=== PATIENT | female | born 1950 | race Caucasian/White ===

== ENCOUNTER → 2020-10-15 | Outpatient (CLI) | payer MEDICARE ==
--- NOTE | 2020-10-15 16:20 | BD ---
EXAMINATION TYPE: Axial Bone Density DATE OF EXAM: 10/15/2020 COMPARISON: NONE CLINICAL HISTORY: Postmenopausal female Height: 66.2 IN Weight: 196 LBS FRAX RISK QUESTIONS: RISK FACTORS HISTORY OF: Active: YES Diet low in dairy products/other sources of calcium: YES Postmenopausal woman: AGE 50 Take estrogen and/or progesterone medications: NOT NOW How long: TOOK CONTROL FOR 15 YEARS MEDICATIONS: Osteoporosis Medications: NOT NOW Which medication: Actonel How Long: TOOK FOR 2 YEARS Additional Medications: METFORMIN, BLOOD PRESSURE MEDS, DIABETES MEDS, CHOLESTEROL MEDS EXAM MEASUREMENTS: Bone mineral densitometry was performed using the [employer] System. Bone mineral density as measured about the Lumbar spine is: ----- L1-L4(G/cm2): 1.126 T Score Values are as follows: ----- L2: -1.5 ----- L3: -0.2 ----- L4: 0.4 ----- L1-L4: -0.5 Bone mineral density BASELINE Bone mineral density about the R hip (g/cm2): 0.744 Bone mineral density about the L hip (g/cm2): 0.669 T Score values are as follows: -----R Neck: -2.1 -----L Neck: -2.7 -----R Total: -1.1 -----L Total: -1.7 Bone mineral density BASELINE IMPRESSION: Osteoporosis (T Score less than -2.5) femoral neck level within the left hip. There is increased fracture risk and therapy is usually indicated based on age. Re-Screen 1-2 years. NOTE: T-SCORE=SD OF THE YOUNG ADULT MEAN.
--- NOTE | 2020-10-17 14:53 | MM ---
Reason for exam: screening (asymptomatic). Last mammogram was performed 1 year and 5 months ago. History: Patient is postmenopausal. Took hormonal contraceptives for 20 years. Physical Findings: A clinical breast exam by your physician is recommended on an annual basis and results should be correlated with mammographic findings. MG 3D Screening Mammo W/Cad Bilateral CC and MLO view(s) were taken. Prior study comparison: May 26, 2019, mammogram. February 08, 2018, mammogram. There are scattered fibroglandular densities. No significant changes when compared with prior studies. ASSESSMENT: Benign, BI-RAD 2 RECOMMENDATION: Routine screening mammogram of both breasts in 1 year.
== END | disposition home or self-care (01) ==
LOC: RADMAMWWP 07:15
PROVIDERS: ATTEND Family Medicine
DX: Z12.31 Encounter for screening mammogram for malignant neoplasm of breast (principal); Z78.0 Asymptomatic menopausal state; M81.0 Age-related osteoporosis without current pathological fracture
CPT/HCPCS: 77063; 77067; 77080

== ENCOUNTER → 2022-10-16 | Outpatient (CLI) | payer MEDICARE ==
--- NOTE | 2022-10-16 12:07 | BD ---
EXAMINATION TYPE: Axial Bone Density DATE OF EXAM: 10/16/2022 CLINICAL HISTORY: 72 year old Female. ICD-10 CODE: Z78.0 MENOPAUSAL STATE Height: 67 Weight: 201.7 FRAX RISK QUESTIONS: Alcohol (3 or more units per day): no Family History (Parent hip fracture): no Glucocorticoids (More than 3mos): no (Ex: prednisone, prednisolone, methylprednisolone, dexamethasone, and hydrocortisone). History of Fracture in Adulthood: yes Secondary Osteoporosis: 1. Type 1 Diabetes: no 2. Hyperthyroidism: no 3. Menopause before 45: no 4. Malnutrition: no 5. Chronic liver disease: no Rheumatoid Arthritis: no Current Tobacco Use: no RISK FACTORS HISTORY OF: Surgery to Spine/Hip(right/left)/Wrist (right/left): no Family History of Osteoporosis: no Active: no Diet low in dairy products/other sources of calcium: yes Postmenopausal woman: yes Lost more than 2 inches in height since high school: no MEDICATIONS: Osteoporosis Medications: generic Actonel How Lon 1/2 years Additional Medications: Additional History: EXAM MEASUREMENTS: Bone mineral densitometry was performed using the [employer] System. Bone mineral density as measured about the Lumbar spine is: ----- L1-L4(G/cm2): 1.171 T Score Values are as follows: ----- L1: -0.3 ----- L2: -1.4 ----- L3: 0.1 ----- L4: 1.1 ----- L1-L4: -0.1 Z Score Values are as follows: ----- L1: 0.5 ----- L2: -0.6 ----- L3: 0.9 ----- L4: 1.8 ----- L1-L4: 0.7 Bone mineral density has: increased 4.0 % since study of: 10.15.2020 Bone mineral density about the R hip (g/cm2): 0.869 Bone mineral density about the L hip (g/cm2): 0.783 T Score values are as follows: -----R Neck: -2.2 -----L Neck: -2.3 -----R Total: -1.1 -----L Total: -1.8 Z Score values are as follows: -----R Neck: -1.0 -----L Neck: -1.2 -----R Total: -0.2 -----L Total: -0.9 Bone mineral density has: decreased -0.8 % since study of: 10.15.2020 FRAX%s: The graph provided illustrates a 20.4% chance for a major osteoporotic fx and a 4.6% chance f or the hips probability for fx in 10 years time. IMPRESSION: Osteopenia (T Score between -2.5 and -1). There is slightly increased risk of fracture and the patient may be considered for treatment. Re-Screen 2-5 years. NOTE: T-SCORE=SD OF THE YOUNG ADULT MEAN.
--- NOTE | 2022-10-19 18:36 | MM ---
Reason for Exam: Screening (asymptomatic). Last mammogram was performed 2 year(s) and 0 month(s) ago. Patient History: Menarche at age 19. First Full-Term at age 26. Postmenopausal. Patient used Hormonal Contraceptives for 20 years. Risk Values: Cristy 5 year model risk: 1.4%. NCI Lifetime model risk: 4.1%. Prior Study Comparison: 02/08/2018 Screening Mammogram, Unknown. 05/26/2019 Screening Mammogram, Unknown. 10/15/2020 Bilateral Screening Mammogram, [facility]. Tissue Density: There are scattered fibroglandular densities. Findings: Analyzed By CAD. Enlarging isodense nodularity 9:00 right breast middle depth. Adjacent chronic nodularity with a punctate calcification noted. Further evaluation is recommended. Otherwise, no significant change. Overall Assessment: Incomplete: need additional imaging evaluation, BI-RAD 0 Management: Special View Mammogram of the right breast. Diagnostic Breast Ultrasound of the right breast. Additional views to include spot 3-D CC, spot 3-D MLO, and 3-D ML views. Targeted right breast ultrasound. [facility] will attempt to contact patient to return for supplemental views and ultrasound if indicated. Electronically signed and approved by: Zahraa Fierro M.D. Radiologist
== END | disposition home or self-care (01) ==
LOC: RADMAMWWP 10:23
PROVIDERS: ATTEND Family Medicine
DX: Z12.31 Encounter for screening mammogram for malignant neoplasm of breast (principal); M85.89 Other specified disorders of bone density and structure, multiple sites; Z78.0 Asymptomatic menopausal state
CPT/HCPCS: 77063; 77067; 77080

== ENCOUNTER → 2022-10-20 | Outpatient (CLI) | payer MEDICARE ==
--- NOTE | 2022-10-20 14:45 | MM ---
Reason for Exam: Additional evaluation requested from abnormal screening. Last screening mammogram was performed less than 1 month ago. Patient History: Menarche at age 19. First Full-Term at age 26. Postmenopausal. Patient has history of breast feeding. Patient used Hormonal Contraceptives for 20 years. Risk Values: Cristy 5 year model risk: 1.4%. NCI Lifetime model risk: 4.1%. Prior Study Comparison: 02/08/2018 Screening Mammogram, Unknown. 05/26/2019 Screening Mammogram, Unknown. 10/15/2020 Bilateral Screening Mammogram, [facility]. 10/16/2022 Bilateral MG 3D screening mammo w/cad, [facility]. Tissue Density: Right: There are scattered fibroglandular densities. Findings: Analyzed By CAD. Persistent focal asymmetry right breast lateral aspect posterior depth approximately 7.1 cm from the nipple measuring at least 6 mm. This is felt to be within the posterior nipple line On ML imaging approximately 6.1 cm from the nipple. Overall Assessment: Incomplete: need additional imaging evaluation, BI-RAD 0 Management: Diagnostic Breast Ultrasound of the right breast. Results were given to the patient verbally at the time of exam. Patient should continue monthly self-breast exams. A clinical breast exam by your physician is recommended on an annual basis. This exam should not preclude additional follow-up of suspicious palpable abnormalities. Note on Cristy scores and lifetime risk: 1. A Cristy score greater than 3% is considered moderate risk. If this is the case, consider specialist referral to assess eligibility for a risk reducing agent. 2. If overall lifetime risk for the development of breast cancer is 20% or higher, the patient may qualify for future screening with alternating mammogram and breast MRI. Electronically signed and approved by: Daniel Gallo DO
--- NOTE | 2022-10-20 15:30 | USB ---
Reason for Exam: Additional evaluation requested from abnormal screening. Patient History: Menarche at age 19. First Full-Term at age 26. Postmenopausal. Patient has history of breast feeding. Patient used Hormonal Contraceptives for 20 years. Risk Values: Cristy 5 year model risk: 1.4%. NCI Lifetime model risk: 4.1%. Technique: Method: Targeted. Prior Study Comparison: 05/26/2019 Screening Mammogram, Unknown. 10/15/2020 Bilateral Screening Mammogram, [facility]. 10/16/2022 Bilateral MG 3D screening mammo w/cad, [facility]. Findings: The lateral section of the breast of the right breast, the axilla of the right breast and the retroareolar of the right breast were scanned. 2 hypoechoic nodules are identified one of which demonstrates ill-defined margins and is located at the 9:00 position 7 cm from the nipple measuring 4 x 4 millimeters. Tissue diagnosis is recommended. A second hypoechoic nodule is seen which appears cystic at the right 9:00 position also 7 cm from the nipple measuring 0.45 cm. No additional lesions seen within the field. Overall Assessment: Suspicious, BI-RAD 4 Management: Ultrasound Core Biopsy of the right breast. A clinical breast exam by your physician is recommended on an annual basis and results should be correlated with mammographic findings. This exam should not preclude additional follow-up of suspicious palpable abnormalities. Results were given to the patient verbally at the time of exam. Electronically signed and approved by: Daniele Yousif M.D. Radiologis
== END | disposition home or self-care (01) ==
LOC: RADMAMWWP 14:18
PROVIDERS: ATTEND Family Medicine
DX: N63.12 Unspecified lump in the right breast, upper inner quadrant (principal); Z78.0 Asymptomatic menopausal state
CPT/HCPCS: 77065; 76642; G0279; 77061

== ENCOUNTER → 2022-10-31 | Day surgery (SDC) | payer MEDICARE ==
--- NOTE | 2022-11-07 10:01 | MM ---
Reason for Exam: Post Procedure Mammogram. Last screening mammogram was performed less than 1 month ago. Patient History: Menarche at age 19. First Full-Term at age 26. Postmenopausal. Patient has history of breast feeding. Patient used Hormonal Contraceptives for 20 years. Risk Values: Cristy 5 year model risk: 1.4%. NCI Lifetime model risk: 4.1%. Prior Study Comparison: 10/15/2020 Bilateral Screening Mammogram, [facility]. 10/16/2022 Bilateral MG 3D screening mammo w/cad, [facility]. 10/20/2022 Right MG 3D work up w/cad RT, [facility]. Tissue Density: Right: There are scattered fibroglandular densities. Pathology Description: Location: 9 o'clock, upper outer quadrant, middle. Marker Left Behind. Needle Type: Mammotome Cores: 4 Gauge: 13 The procedure of ultrasound guided core biopsy was explained to the patient. Benefits, alternatives, and risks were discussed. An informed consent was then obtained. The patient was placed in supine positioning for imaging and for the procedure. Preprocedure ultrasound redemonstrates a 4 to 5 mm hypoechoic slightly shadowing lesion at 9:00 position 7 cm distance from nipple near an adjacent 3 to 4 mm simple appearing thin-walled cyst. The overlying skin was prepped and draped in usual sterile fashion. Lidocaine is used as anesthetic into the skin and subcutaneous tissue. Lidocaine with epinephrine is used as anesthetic into the deeper tissue up to area of concern in the right breast. Under ultrasound guidance, a vacuum assisted biopsy gun device was used to obtain 4 core samples. Lesion was not well-seen after sampling. Following this, a biopsy clip was left near the level lesion was once present. The patient tolerated the procedure well without any immediate complication. The patient was kept in the radiology department for short stay after the procedure and then discharged home in stable condition. Postprocedure mammogram: The patient was transferred to mammography for physician ordered post procedure mammogram for clip placement verification. Clip is visualized near region of concern on original mammogram Impression: Successful, uncomplicated ultrasound guided core biopsy of area of concern in the right breast, full pathology results to follow. Low to intermediate index of suspicion noted at time of procedure. Pathology Results: Result: Benign, Fat necrosis. RIGHT BREAST, 9:00 POSITION, ULTRASOUND GUIDED CORE BIOPSY: Nodular fat necrosis and fibrocystic change with columnar cell change and moderate to florid usual ductal hyperplasia (see note). Fragment of enlarged and reactive ductal cyst present. Focal microcalcification identified. Current specimen negative for diagnostic in situ or invasive carcinoma. Notes In order to further assess for atypia, immunohistochemistry with CK5/6 is performed with appropriate controls on the tissue block. CK5/6 staining is positive within myoepithelial cells surrounding ductal structures, and positive staining is seen within intraductal areas of usual ductal hyperplasia. These findings support a benign diagnosis. Overall Assessment: Benign Assessment: MG diagnostic mammo RT wo CAD - Right: Benign, BI-RAD 2. Management: Diagnostic Mammogram of the right breast in 6 months. Electronically signed and approved by: Alden Gama M.D.
== END ==
LOC: RADUSWWP 10:04
PROVIDERS: ATTEND Surgery
DX: N60.11 Diffuse cystic mastopathy of right breast (principal); N60.01 Solitary cyst of right breast; N60.91 Unspecified benign mammary dysplasia of right breast; Z78.0 Asymptomatic menopausal state
CPT/HCPCS: 88305; 88341; 77065; 19083; A4648

== ENCOUNTER → 2022-11-14 | Outpatient (CLI) | payer MEDICARE ==
[2022-11-14 13:09] VITALS: BP 116/66; PULSE 78; RESP 13; TEMP 98.6
--- NOTE | 2022-11-14 13:49 | P.GSHP ---
History of Present Illness H&P Date: 11/14/22 Chief Complaint: abnormal right breast mammogram Latisha is a 72 year old white female seen in consultation for Dr. Lynch regarding an ultrasound abnormality in the right breast. She had a bilateral mammogram on 10-16-22, this led to a right breast diagnostic mammogram 10-16-22 and ultrasound on 10-20-22. This led to an ultrasound core biopsy of the right breast on 10-31-22. The finding were felt to be benign concordant. This was reviewed with Dr. Etienne. The patient is not complaining of any new lumps masses or nodules of concern in either breast. She is not complaining of any nipple discharge or skin changes. She has never had surgery or biopsies on her breast in the past prior to this. Caffeine: 1 liter/day nicotine: none chocolate: occasional Family History: brother: bladder, colon cancer Hormonal History: menarche: 19 M1, beast fed: no, age at first : 26 menopause: 48 Surgical History: wisdom teeth D&C Medical History: diabetes bone density HTN Social History: nicotine: none alcohol: none drugs: none - Constitutional Constitutional: Denies chills, Denies fever - EENT Eyes: denies blurred vision, denies pain Ears: deny: decreased hearing, tinnitus Ears, nose, mouth and throat: Denies headache, Denies sore throat - Breasts Breasts: bilateral: as per HPI - Cardiovascular Cardiovascular: Denies chest pain, Denies shortness of breath - Respiratory Respiratory: Denies cough, Denies 7 - Gastrointestinal Gastrointestinal: Denies abdominal pain, Denies diarrhea, Denies nausea, Denies vomiting - Genitourinary (Female) Genitourinary: Denies dysuria, Denies hematuria - Menstruation Menstruation: Reports postmenopausal - Musculoskeletal Musculoskeletal: Reports myalgias - Integumentary Integumentary: Denies pruritus, Denies rash - Neurological Neurological: Denies numbness, Denies weakness - Psychiatric Psychiatric: Denies anxiety, Denies depression - Endocrine Comment: diabetes; takes metformin - Hematologic/Lymphatic Comment: baby aspirin - Allergic/Immunologic Allergic/Immunologic: Reports as per HPI Past Medical History Past Medical History: Diabetes Mellitus Additional Past Medical History / Comment(s): Type 2 DM, states she takes cholesteral and blood pressure medication for prevention R/T to DM History of Any Multi-Drug Resistant Organisms: None Reported Past Surgical History: No Surgical Hx Reported Past Anesthesia/Blood Transfusion Reactions: No Reported Reaction Past Psychological History: No Psychological Hx Reported Smoking Status: Never smoker Past Alcohol Use History: Rare Past Drug Use History: None Reported Medications and Allergies Home Medications Medication Instructions Recorded Confirmed Type Aspirin [Searcy Aspirin EC] 81 mg PO DAILY 10/21/22 11/14/22 History Atorvastatin [Lipitor] 10 mg PO DAILY 10/21/22 11/14/22 History Risedronate Sodium [Risedronate 35 mg PO WEEKLY 10/21/22 11/14/[address]] amLODIPine [Norvasc] 5 mg PO DAILY 10/21/22 11/14/22 History metFORMIN HCL 1,000 mg PO BID 10/21/22 11/14/22 History Allergies Allergy/AdvReac Type Severity Reaction Status Date / Time No Known Allergies Allergy Verified 11/14/22 13:04 Surgical - Exam Vital Signs Temp Pulse Resp BP Pulse Ox 98.6 F 78 13 116/66 97 11/14/22 13:05 11/14/22 13:05 11/14/22 13:05 11/14/22 13:05 11/14/22 13:05 - General no distress - Eyes normal ocular movement - ENT no hearing loss - Neck trachea midline - Respiratory normal respiratory effort, clear to auscultation - Cardiovascular Rhythm: regular Heart Sounds: normal: S1, S2 - Abdomen Abdomen: soft, non tender, no guarding, no rigid, no rebound - Integumentary normal turgor - Neurologic no disoriented, no combative - Musculoskeletal normal gait, normal posture - Psychiatric oriented to time, oriented to person, oriented to place, speech is normal, memory intact Breast Exam: BRA: [id number] Inspection bilateral grade 2 ptosis Palpation: Right breast: Biopsy site clean and dry, no dominant masses or nodules of concern, fibrocystic changes Right axilla: No adenopathy of concern Left breast: Multiple positional exam no dominant masses or nodules of concern Left axilla: No adenopathy of concern Results mammogram and ultrasound reviewed with Dr. Etienne Assessment and Plan Assessment: Impression: Mammographic abnormality right breast status post core biopsy felt to be benign concordant Plan: Repeat right breast mammogram and ultrasoun in 6 months with physician exam at that time Repeat bilateral mammogram in 1 year CC: Dr. Lynch
== END ==
LOC: WWCWWP 12:41
PROVIDERS: ATTEND Surgery
DX: R92.8 Other abnormal and inconclusive findings on diagnostic imaging of breast (principal); I10 Essential (primary) hypertension; E11.9 Type 2 diabetes mellitus without complications; Z79.84 Long term (current) use of oral hypoglycemic drugs

== ENCOUNTER → 2023-05-05 | Outpatient (CLI) | payer MEDICARE ==
--- NOTE | 2023-05-05 15:50 | USB ---
Reason for Exam: Follow-up at short interval from prior study. Patient History: Menarche at age 19. First Full-Term at age 26. Postmenopausal. Patient has history of breast feeding. Patient used Hormonal Contraceptives for 20 years. 10/31/2022, Benign US biopsy breast VAD RT on the right side. Risk Values: Cristy 5 year model risk: 1.7%. NCI Lifetime model risk: 4.7%. Technique: Method: Targeted. Prior Study Comparison: 10/16/2022 Bilateral MG 3D screening mammo w/cad, [facility]. 10/20/2022 Right MG 3D work up w/cad RT, [facility]. 10/31/2022 Right MG diagnostic mammo RT wo CAD, [facility]. Findings: The lateral section of the breast of the right breast, the axilla of the right breast and the retroareolar of the right breast were scanned. No solid or cystic masses are identified.. The patient's biopsy clip is possibly identified. Overall Assessment: Negative, BI-RAD 1 Management: Screening Mammogram of both breasts in 6 months. A clinical breast exam by your physician is recommended on an annual basis and results should be correlated with mammographic findings. This exam should not preclude additional follow-up of suspicious palpable abnormalities. Results were given to the patient verbally at the time of exam. Electronically signed and approved by: Trell Gomez D.O. Radiologis
--- NOTE | 2023-05-06 08:14 | MM ---
Reason for Exam: Follow-up at short interval from prior study. Last screening mammogram was performed 7 month(s) ago. Patient History: Menarche at age 19. First Full-Term at age 26. Postmenopausal. Patient has history of breast feeding. Patient used Hormonal Contraceptives for 20 years. 10/31/2022, Benign US biopsy breast VAD RT on the right side. Risk Values: Cristy 5 year model risk: 1.7%. NCI Lifetime model risk: 4.7%. Prior Study Comparison: 10/16/2022 Bilateral MG 3D screening mammo w/cad, [facility]. 10/20/2022 Right MG 3D work up w/cad RT, [facility]. 10/31/2022 Right MG diagnostic mammo RT wo CAD, [facility]. Tissue Density: Right: There are scattered fibroglandular densities. Findings: Analyzed By CAD. Pattern appears stable. Core marker is within the upper outer right breast. Previous nodularity at the biopsy site is largely resolved. No suspicious groups of microcalcifications, spiculated or lobular masses, architectural distortion or other secondary signs of malignancy are mammographically apparent. Overall Assessment: Benign, BI-RAD 2 Management: Screening Mammogram of both breasts in 6 months. A negative mammogram report should not preclude additional follow up of suspicious palpable abnormalities. Patient should continue monthly self breast exam. A clinical breast exam by your physician is recommended on an annual basis and results should be correlated with mammographic findings. Electronically signed and approved by: Trell Gomez D.O. Radiologis
== END | disposition home or self-care (01) ==
LOC: RADMAMWWP 14:08
PROVIDERS: ATTEND Surgery
DX: R92.321 Mammographic fibroglandular density, right breast (principal); Z78.0 Asymptomatic menopausal state
CPT/HCPCS: 77065; 76642; G0279; 77061

== ENCOUNTER → 2023-05-08 | Outpatient (CLI) | payer MEDICARE ==
--- NOTE | 2023-05-08 14:27 | P.PN ---
Subjective Progress Note Date: 05/08/23 abnormal right breast mammogram Latisha is a 73 year old white female seen in consultation for Dr. Lynch regarding an ultrasound abnormality in the right breast. She had a bilateral mammogram on 10-16-22, this led to a right breast diagnostic mammogram 10-16-22 and ultrasound on 10-20-22. This led to an ultrasound core biopsy of the right breast on 10-31-22. The finding were felt to be benign concordant. This was reviewed with Dr. Etienne. The patient is not complaining of any new lumps masses or nodules of concern in either breast. She is not complaining of any nipple discharge or skin changes. She has never had surgery or biopsies on her breast in the past prior to this. Mammographic abnormality right breast status post core biopsy felt to be benign concordant; (repeat right breast mammogram BIRAD 2 and ultrasound BIRAD 1 on 05-05-23) She is due for bilateral mammogram in October 2023 Caffeine: 1 liter/day nicotine: none chocolate: occasional Family History: brother: bladder, colon cancer Hormonal History: menarche: 19 M1, beast fed: no, age at first : 26 menopause: 48 Surgical History: wisdom teeth D&C Medical History: diabetes bone density HTN Social History: nicotine: none alcohol: none drugs: none - Constitutional Constitutional: Denies chills, Denies fever - EENT Eyes: denies blurred vision, denies pain Ears: deny: decreased hearing, tinnitus Ears, nose, mouth and throat: Denies headache, Denies sore throat - Breasts Breasts: bilateral: as per HPI - Cardiovascular Cardiovascular: Denies chest pain, Denies shortness of breath - Respiratory Respiratory: Denies cough - Gastrointestinal Gastrointestinal: Denies abdominal pain, Denies diarrhea, Denies nausea, Denies vomiting - Genitourinary (Female) Genitourinary: Denies dysuria, Denies hematuria - Menstruation Menstruation: Reports postmenopausal - Musculoskeletal Musculoskeletal: Reports myalgias - Integumentary Integumentary: Denies pruritus, Denies rash - Neurological Neurological: Denies numbness, Denies weakness - Psychiatric Psychiatric: Denies anxiety, Denies depression - Endocrine Comment: diabetes; takes metformin - Hematologic/Lymphatic Comment: baby aspirin - Allergic/Immunologic Allergic/Immunologic: Reports as per HPI Past Medical History Past Medical History: Diabetes Mellitus Additional Past Medical History / Comment(s): Type 2 DM, states she takes cholesteral and blood pressure medication for prevention R/T to DM History of Any Multi-Drug Resistant Organisms: None Reported Past Surgical History: No Surgical Hx Reported Past Anesthesia/Blood Transfusion Reactions: No Reported Reaction Past Psychological History: No Psychological Hx Reported Smoking Status: Never smoker Past Alcohol Use History: Rare Past Drug Use History: None Reported Medications and Allergies Home Medications Medication Instructions Recorded Confirmed Type Aspirin [Niotaze Aspirin EC] 81 mg PO DAILY 10/21/22 11/14/22 History Atorvastatin [Lipitor] 10 mg PO DAILY 10/21/22 11/14/22 History Risedronate Sodium [Risedronate 35 mg PO WEEKLY 10/21/22 11/14/[address]] amLODIPine [Norvasc] 5 mg PO DAILY 10/21/22 11/14/22 History metFORMIN HCL 1,000 mg PO BID 10/21/22 11/14/22 History Allergies Allergy/AdvReac Type Severity Reaction Status Date / Time No Known Allergies Allergy Verified 11/14/22 13:04 Objective - Constitutional General appearance: Present: cooperative - EENT Eyes: Present: EOMI ENT: Present: hearing grossly normal - Neck Neck: Present: normal ROM - Respiratory Respiratory: bilateral: CTA - Cardiovascular Heart sounds: normal: S1, S2 - Integumentary Integumentary: Present: normal turgor - Musculoskeletal Musculoskeletal: Present: gait normal - Psychiatric Psychiatric: Present: A&O x's 3, appropriate affect, intact judgment & insight - Additional findings Additional findings: Breast Exam: BRA: 44B Inspection bilateral grade 2 ptosis Palpation: Right breast: multi-positional exam no dominant masses or nodules of concern, fibrocystic changes Right axilla: No adenopathy of concern Left breast: Multiple positional exam no dominant masses or nodules of concern Left axilla: No adenopathy of concern Assessment and Plan Assessment: Impression: Mammographic abnormality right breast status post core biopsy felt to be benign concordant; repeat right breast mammogram BIRAD 2 and ultrasound BIRAD 1 on 05-05-23 Plan: Repeat right breast mammogram and ultrasound in 6 months with physician exam at that time Repeat bilateral mammogram in October 2023 with appointment at that time CC: Dr. Lynch
== END ==
LOC: WWCWWP 13:52
PROVIDERS: ATTEND Surgery
DX: E11.9 Type 2 diabetes mellitus without complications (principal); I10 Essential (primary) hypertension; Z79.84 Long term (current) use of oral hypoglycemic drugs; Z79.82 Long term (current) use of aspirin

== ENCOUNTER → 2023-07-22 | Outpatient (CLI) | payer MEDICARE ==
--- NOTE | 2023-07-22 08:54 | US ---
EXAMINATION TYPE: US abdomen complete DATE OF EXAM: 07/22/2023 COMPARISON: NONE CLINICAL INDICATION: Female, 73 years old with history of R19.03 RLQ PAIN; episode of RLQ pain TECHNIQUE: Multiple sonographic images of the abdomen are obtained. FINDINGS: EXAM MEASUREMENTS: Liver Length: 16.9 cm Gallbladder Wall: 0.1 cm CBD: 0.4 cm Spleen: 9.6 cm Right Kidney: 11.7x4.2x5.3 cm Left Kidney: 10.9x5.3x4.2 cm Pancreas: Tail obscured by overlying bowel gas Liver: increased size, attenuation, and echogenicity Gallbladder: 0.5cm polyp versus adherent stone Evidence for sonographic Galeas's sign: No CBD: wnl Spleen: wnl Right Kidney: No hydronephrosis or masses seen Left Kidney: No hydronephrosis or masses seen Upper IVC: wnl Abd Aorta: wnl as visualized exam limitedby bowel gas and body habitus The liver is homogenous with increased echotexture. The intrahepatic portion of the IVC and proximal abdominal aorta are within normal limits. Common bile duct is unremarkable. The visualized portion s of the pancreas are homogenous. The spleen is unremarkable. Kidneys are symmetric and free of hyd ronephrosis. No renal lesions are seen. IMPRESSION: 1. No evidence for acute process. 2. Gallbladder wall polyp versus adherent stone measuring 5 mm. 3. Hepatic steatosis.
== END | disposition home or self-care (01) ==
LOC: RADUSWWP 07:08
PROVIDERS: ATTEND Family Medicine
DX: R19.03 Right lower quadrant abdominal swelling, mass and lump (principal); K76.0 Fatty (change of) liver, not elsewhere classified; K82.4 Cholesterolosis of gallbladder
CPT/HCPCS: 76700

== ENCOUNTER → 2023-10-22 | Outpatient (CLI) | payer MEDICARE ==
--- NOTE | 2023-10-22 10:01 | MM ---
Reason for Exam: Additional evaluation requested from prior study. Last screening mammogram was performed 12 month(s) ago. Patient History: Menarche at age 19. First Full-Term at age 26. Postmenopausal. Patient used Hormonal Contraceptives for 20 years. 10/31/2022, Benign US biopsy breast VAD RT on the right side. Risk Values: Cristy 5 year model risk: 1.7%. NCI Lifetime model risk: 4.7%. Prior Study Comparison: 02/08/2018 Screening Mammogram, Unknown. 05/26/2019 Screening Mammogram, Unknown. 10/15/2020 Bilateral Screening Mammogram, [facility]. 10/16/2022 Bilateral MG 3D screening mammo w/cad, [facility]. 10/20/2022 Right MG 3D work up w/cad RT, [facility]. 10/31/2022 Right MG diagnostic mammo RT wo CAD, [facility]. 05/05/2023 Right MG 3D diag mammo w/cad RT, [facility]. Tissue Density: There are scattered areas of fibroglandular density. Findings: Analyzed By CAD. No evidence for mass or distortion. Microclip marker right breast. No suspicious microcalcifications. Overall Assessment: Benign, BI-RAD 2 Management: Screening Mammogram of both breasts in 1 year. . Results were given to the patient verbally at the time of exam. Patient should continue monthly self-breast exams. A clinical breast exam by your physician is recommended on an annual basis. This exam should not preclude additional follow-up of suspicious palpable abnormalities. Note on Cristy scores and lifetime risk: 1. A Cristy score greater than 3% is considered moderate risk. If this is the case, consider specialist referral to assess eligibility for a risk reducing agent. 2. If overall lifetime risk for the development of breast cancer is 20% or higher, the patient may qualify for future screening with alternating mammogram and breast MRI. Electronically signed and approved by: Daniele Yousif M.D. Radiologis
== END | disposition home or self-care (01) ==
LOC: RADMAMWWP 09:30
PROVIDERS: ATTEND Surgery
DX: R92.323 Mammographic fibroglandular density, bilateral breasts (principal); R92.8 Other abnormal and inconclusive findings on diagnostic imaging of breast
CPT/HCPCS: 77066; G0279; 77062

== ENCOUNTER → 2023-12-24 | Outpatient (CLI) | payer MEDICARE ==
[~2023-12-24] MED LIST: SODIUM CHLORIDE 0.9% 100 ML BAG IV ONE; SODIUM CHLORIDE 0.9% 500 ML BAG ONE; ZOLEDRONIC ACID 4 MG/5 ML VIAL IV ONE
== END ==
LOC: PROCWHC3 13:45
PROVIDERS: ATTEND Family Medicine
DX: M81.0 Age-related osteoporosis without current pathological fracture (principal)
CPT/HCPCS: 96365

== ENCOUNTER → 2024-11-17 | Outpatient (CLI) | payer MEDICARE ==
--- NOTE | 2024-11-17 15:54 | MM ---
Reason for Exam: Screening (asymptomatic). Last mammogram was performed 1 year(s) and 1 month(s) ago. Patient History: Menarche at age 19. First Full-Term at age 26. Postmenopausal. Patient used Hormonal Contraceptives for 20 years. 10/31/2022, Benign US biopsy breast VAD RT on the right side. Risk Values: Cristy 5 year model risk: 1.7%. NCI Lifetime model risk: 4.4%. Prior Study Comparison: 10/31/2022 Right MG diagnostic mammo RT wo CAD, [facility]. 05/05/2023 Right MG 3D diag mammo w/cad RT, [facility]. 10/22/2023 Bilateral MG 3D diag mammo w/cad [facility], [facility]. Tissue Density: There are scattered areas of fibroglandular density. Findings: Analyzed By CAD. Stable biopsy clip marker right breast. Benign calcifications. There is no suspicious group of microcalcifications or new suspicious mass in either breast. Overall Assessment: Benign, BI-RAD 2 Management: Screening Mammogram of both breasts in 1 year. . Patient should continue monthly self-breast exams. A clinical breast exam by your physician is recommended on an annual basis. This exam should not preclude additional follow-up of suspicious palpable abnormalities. Note on Cristy scores and lifetime risk: 1. A Cristy score greater than 3% is considered moderate risk. If this is the case, consider specialist referral to assess eligibility for a risk reducing agent. 2. If overall lifetime risk for the development of breast cancer is 20% or higher, the patient may qualify for future screening with alternating mammogram and breast MRI. [facility], , 11/17/2024 3:50 PM. Electronically signed and approved by: Dipesh Acharya M.D. Radiologis
--- NOTE | 2024-11-18 08:48 | BD ---
EXAMINATION TYPE: Axial Bone Density DATE OF EXAM: 11/17/2024 CLINICAL HISTORY: 74 years old Female. ICD-10 CODE: Z78.0 POST MENOPAUSAL , Additional History: Height: 66" Weight: 185lbs FRAX RISK QUESTIONS: Alcohol (3 or more units per day): No Family History (Parent hip fracture): No Glucocorticoids (More than 3mos): No (Ex: prednisone, prednisolone, methylprednisolone, dexamethasone, and hydrocortisone). History of Fracture in Adulthood: Yes Secondary Osteoporosis: 1. Type 1 Diabetes: No 2. Hyperthyroidism: No 3. Menopause before 45: No 4. Malnutrition: No 5. Chronic liver disease: No Rheumatoid Arthritis: No Current Tobacco Use: No RISK FACTORS HISTORY OF: Hip Fracture (Right/Left): No Spine Fracture: No History of Wrist Fracture: No Surgery to Spine/Hip(right/left)/Wrist (right/left): No MEDICATIONS: Thyroid Medications: No Osteoporosis Medications: Yes Which medication: Patient is unsure of the medication but it is once a year injection How Long: Last injection was Dec 2023 EXAM MEASUREMENTS: Bone mineral densitometry was performed using the [employer] System. Bone mineral density as measured about the Lumbar spine is: ----- L1-L4(G/cm2): 1.194 T Score Values are as follows: ----- L1: -0.9 ----- L2: -1.1 ----- L3: 0.5 ----- L4: 1.5 ----- L1-L4: 0.1 Z Score Values are as follows: ----- L1: 0.2 ----- L2: -0.1 ----- L3: 1.5 ----- L4: 2.6 ----- L1-L4: 1.2 Bone mineral density has: increased 2.0% since study of: 10/16/2022 Bone mineral density about the R hip (g/cm2): 0.851 Bone mineral density about the L hip (g/cm2): 0.787 T Score values are as follows: -----R Neck: -2.2 -----L Neck: -2.5 -----R Total: -1.2 -----L Total: -1.8 Z Score values are as follows: -----R Neck: -0.8 -----L Neck: -1.1 -----R Total: -0.1 -----L Total: -0.6 Bone mineral density has: decreased -0.8% since study of: 10/16/2022 FRAX%s: The graph provided illustrates a 23.7% chance for a major osteoporotic fx and a 6.5% chance f or the hips probability for fx in 10 years time. IMPRESSION: Osteopenia (T Score between -2.5 and -1). There is slightly increased risk of fracture and the patient may be considered for treatment. Re-Screen 2-5 years. NOTE: T-SCORE=SD OF THE YOUNG ADULT MEAN. [facility], , 11/18/2024 8:46 AM
== END | disposition home or self-care (01) ==
LOC: RADMAMWWP 15:06
PROVIDERS: ATTEND Family Medicine
DX: Z12.31 Encounter for screening mammogram for malignant neoplasm of breast (principal); R92.323 Mammographic fibroglandular density, bilateral breasts; R92.1 Mammographic calcification found on diagnostic imaging of breast; M81.0 Age-related osteoporosis without current pathological fracture; M85.89 Other specified disorders of bone density and structure, multiple sites; Z92.0 Personal history of contraception; Z78.0 Asymptomatic menopausal state
CPT/HCPCS: 77063; 77067; 77080